=== PATIENT | female | born 1970 | race Caucasian/White ===

== ENCOUNTER → 2019-09-20 | Outpatient (CLI) | payer OTHER ==
--- NOTE | 2019-09-20 16:34 | RAD ---
EXAM: Dual energy x-ray absorptiometry (DEXA). HISTORY: Small bone stature. Osteoporosis screening. COMPARISON: None. TECHNIQUE: Dual energy x-ray absorptiometry of the lumbar spine and right hip was performed. Calculation of bone mineral density based on standard deviations above or below the expected young adult normal value (T-score) was completed. FINDINGS: The average bone mineral density in the 1st through 4th lumbar vertebrae is 1.486 g/cmxcm, corresponding with a T-score of 2.6. The average total bone mineral density in the right hip is 0.688 g/cmxcm, corresponding with a T-score of -2.2. IMPRESSION: 1. Osteopenia measured at the right hip. 2. Normal bone mineral density measured at the lumbar spine. Note: Definitions established by the World Health Organization: 1. Normal: T-score is -1.0 or above. 2. Osteopenia: T-score is between -1.0 and -2.5 . 3. Osteoporosis: T-score is -2.5 or below. Electronically signed by: Yanni Gee MD (09/20/2019 4:31 PM) [id number]
== END | disposition home or self-care (01) ==
LOC: DXRAD 13:24
PROVIDERS: ATTEND Family Medicine
DX: M85.88 Other specified disorders of bone density and structure, other site (principal)
CPT/HCPCS: 77080

== ENCOUNTER 2020-10-14 15:11 | Emergency (ER) | payer OTHER ==
[~2020-10-14] VITALS: Ht 165.1 cm; Wt 112.0 kg
--- NOTE | 2020-10-14 16:34 | RAD ---
Exam performed: X-ray right, right femur right ankle and right foot. DATE OF SERVICE: 10/14/2020. COMPARISON: None available FINDINGS: AP, lateral, sunrise and oblique views of the right knee are obtained. Normal alignment of the medial and lateral tibiofemoral joint is preserved. There is mild narrowing of the patellofemoral joint. Th ere is no acute fracture or dislocation. Mild soft tissue swelling is noted. AP and lateral view of the right femur demonstrates normal alignment of the right hip joint. There is narrowing of the patellofemoral joint. There is no acute fracture or dislocation. No soft tissue swe lling or foreign body seen. AP, lateral and oblique views of the right ankle demonstrate a comminuted fractured distal tibia with a horizontal fracture of the distal fibula. There is diffuse soft tissue swelling. No foreign body. AP, lateral and oblique views of the right foot demonstrate normal alignment. No acute fracture or di slocation is seen. No soft tissue swelling or foreign body seen. IMPRESSION: Comminuted fracture distal tibia and fibula with diffuse soft tissue swelling. No acute bony abnormality seen in the right knee. Degenerative arthrosis involving the patellofemoral joint is noted. No acute abnormality seen in the right femur. No acute abnormality seen in the right foot. Electronically signed by: Tammy Navarro MD (10/14/2020 4:31 PM) [facility]
--- NOTE | 2020-10-14 16:52 | PHYS DOC ---
Adult General Chief Complaint Chief Complaint: LOWER EXT PAIN HPI HPI Patient is a 49-year-old female presents to the emergency department complaining of right lower extremity swelling and discoloration. Patient states she was told to come here by an ER physician friend that seen her yesterday. 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 Patient states that she was transferring herself from her wheelchair into her car when the slide board slipped and she fell onto the ground. Patient did not realize she injured her right leg because she has not been able to feel her right leg for the past 22 years. Patient states that she had gone through her normal daily routine Thursday, and Thursday, and decided to come to the emergency department today for evaluation. Patient reports an allergy to Neosporin ointment. States she only takes Lamictal at home. Denies any other physical complaints or physical injury. (MARIA ISABEL MAURICIO APRN) Review of Systems Review of Systems 14 body systems of review of systems have been reviewed. See HPI for pertinent positives and negative responses, otherwise all other systems are negative, nonpertinent or noncontributory. (MARIA ISABEL MAURICIO APRN) Allergies Allergies Allergies Coded Allergies Type Severity Reaction Last Updated Verified bacitracin Allergy Unknown 10/14/20 Yes neomycin Allergy Unknown 10/14/20 Yes polymyxin B Allergy Unknown 10/14/20 Yes (MARIA ISABEL MAURICIO APRN) Physical Exam Physical Exam Constitutional: Well developed, well nourished, no acute distress, non-toxic appearance. 49-year-old female no apparent distress. HENT: Normocephalic, atraumatic, bilateral external ears normal, nose normal. Eyes: EOMI, conjunctiva normal, no discharge. Neck: Normal range of motion, no tenderness, supple, no stridor. No C-spine tenderness or crepitus appreciated. Cardiovascular:Heart rate regular rhythm, heart sounds S1-S2 to auscultation. Lungs & Thorax: Bilateral breath sounds clear to auscultation, no adventitious lung sounds appreciated. Abdomen: Bowel sounds normal, soft, flat. Skin: Warm, dry, no erythema, no rash. Back: No crepitus along bony prominences or vertebral column to palpation. Extremities: No abnormalities, crepitus, deformity noted to upper or lower extremities except for right knee distally to foot swollen, crepitus noted at ankle area, +3 pitting edema to foot, skin tight, unable to appreciate pulse, right foot pedal pulse and posterior tibial pulse.pulled without difficulty. Distal cap refill less than 2 seconds. Ecchymosis and bruising to ankle and foot area. No differential in temperature to touch versus left foot. Neurologic: Alert and oriented X 3, normal motor function, normal sensory function, no focal deficits noted. Psychologic: Affect normal, judgement normal, mood normal. (MARIA ISABEL MAURICIO APRN) EKG EKG [] (MARIA ISABEL MAURICIO APRN) Radiology/Procedures Radiology/Procedures PATIENT: VALORIE RODRIGUEZ ACCOUNT: [id number] : 1970 LOCATION: ER AGE: 49 SEX: F EXAM STATUS: REG ER ORD. PHYSICIAN: MARIA ISABEL MAURICIO APRN REASON: Fall 10/12/20, right upper leg pain, swelling Hx:Paraplegic PROCEDURE: RIGHT FEMUR XRAY Exam performed: X-ray right, right femur right ankle and right foot. DATE OF SERVICE: 10/14/2020. COMPARISON: None available FINDINGS: AP, lateral, sunrise and oblique views of the right knee are obtained. Normal alignment of the medial and lateral tibiofemoral joint is preserved. There is mild narrowing of the patellofemoral joint. There is no acute fracture or dislocation. Mild soft tissue swelling is noted. AP and lateral view of the right femur demonstrates normal alignment of the right hip joint. There is narrowing of the patellofemoral joint. There is no acute fracture or dislocation. No soft tissue swelling or foreign body seen. AP, lateral and oblique views of the right ankle demonstrate a comminuted fractured distal tibia with a horizontal fracture of the distal fibula. There is diffuse soft tissue swelling. No foreign body. AP, lateral and oblique views of the right foot demonstrate normal alignment. No acute fracture or dislocation is seen. No soft tissue swelling or foreign body seen. IMPRESSION: Comminuted fracture distal tibia and fibula with diffuse soft tissue swelling. No acute bony abnormality seen in the right knee. Degenerative arthrosis involving the patellofemoral joint is noted. No acute abnormality seen in the right femur. No acute abnormality seen in the right foot. Electronically signed by: Tammy Navarro MD (10/14/2020 4:31 PM) [facility] DICTATED AND SIGNED BY: TAMMY NAVARRO MD DATE: 10/14/20 [id number] CC: MARIA ISABEL MAURICIO APRN; NILTON DOOLEY DO; TRAVIS DE LA VEGA MD ~MTH0 0 (MARIA ISABEL MAURICIO APRN) Heart Score C/O Chest Pain: No Risk Factors: Risk Factors: DM, Current or recent (<one month) smoker, HTN, HLP, family history of CAD, obesity. Risk Scores: Risk Factors: DM, Current or recent (<one month) smoker, HTN, HLP, family history of CAD, obesity. (MARIA ISABEL MAURICIO APRN) Course & Med Decision Making Course & Med Decision Making Pertinent Labs and Imaging studies reviewed. (See chart for details) 49-year-old female, vital signs reviewed, presents emergency department concerning injury to right lower extremity after fall. Patient is a paraplegic from T6 injury 22 years ago. Physical examination concerning for bony injury of left lower extremity near ankle related to crepitus upon palpation. Patient has swelling to foot ankle lower leg, patient states she did fall onto her knee, marked swelling of the foot, pulses cruciated with bedside Doppler, distal cap refill less than 2 seconds, compartment syndrome unlikely. Will order x-ray imaging of humerus, knee, ankle, foot. Ice and elevation. X-ray imaging read tib-fib fracture distal bimalleolar, called and discussed findings with physician relations specialist Dr. PITT who recommended patient be placed in a posterior short leg with stirrup OCL splint with plenty of padding. Have patient follow-up at his office on Thursday. Ice and elevation at home daily until seen on Thursday. Discussed findings, splint placement, and Dr. PITT recommendations. Patient was amenable to this plan. Posterior OCL short leg splint with stirrup splint placed to right lower extremity by ED bonded strand operator staff. Upon examination, distal cap refill less than 2 seconds, appropriate placement of splint. Patient gave verbal understanding of splint care at home, follow-up with physician relations specialist this Thursday, ice and elevation, return to ER precautions and concerns, patient discharged home without incident. (MARIA ISABEL MAURICIO APRN) Course & Med Decision Making I oversaw care of patient while in ER. I reviewed radiographs and recommended TERRAZZO HELPER discuss case with Ortho. I agree to note and plan as stated. Electronically signed, Nilton Dooley DO (NILTON DOOLEY DO) Estelita Disclaimer Estelita Disclaimer This electronic medical record was generated, in whole or in part, using a voice recognition dictation system. (MARIA ISABEL MAURICIO APRN) Departure Departure: Impression: Primary Impression: Bimalleolar ankle fracture Disposition: 01 DC HOME SELF CARE/HOMELESS Condition: GOOD Referrals: TRAVIS DE LA VEGA MD (PCP) Patient Instructions: Bimalleolar Fracture, Ankle, Adult, Undisplaced Additional Instructions: You were seen for lower extremity swelling of your right leg, and x-ray revealed you have broken both your tibia and fibula at your ankle. I have spoken to orthopedic specially Dr. Pitt who recommended the splint we have placed on, he also recommended you be seen Thursday at his office. I have given you his office information, please call tomorrow morning for an appointment to be seen Thursday. I encourage you to keep your splinted leg elevated, use ice packs 30 minutes on 30 minutes off while awake. This will help reduce the amount of swelling you have. Please return to the emergency department for worsening symptoms or other concerns. Please have someone check the color and swell of your lower extremity every few hours, return to the emergency department immediately for cyanosis of your foot or lower extremity, cyanosis means a bluish discoloration, coldness. However your foot may seem cold from ice pack application. Dr. Jasbir Pitt Address: [address] [place] [id number] EMERGENCY DEPARTMENT GENERAL DISCHARGE INSTRUCTIONS Thank you for coming to [facility] (ED) today and trusting us with you care. We trust that you had a positivie experience in our Emergency Department. If you wish to speak to the department management, you may call the director at [phone]. YOUR FOLLOW UP INSTRUCTIONS ARE FOLLOWS: 1. Do you have a private Doctor? If you do not have a private doctor, please ask for a resource list of physicians or clinics that may be able to assist you with follow up care. 2. The Emergency Physician has interpreted your x-rays. The X-Ray specialist will also review them. If there is a change in the findings, you will be notified in 48 hours when at all possible. 3. A lab test or culture has been done, your results will be reviewed and you will be notified if you need a change in treatment. ADDITIONAL INSTRUCTIONS AND INFORMATION: 1. Your care today has been supervised by a physician who is specially trained in emergency care. Many problems require more than one evaluation for a complete diagnosis and treatment. We recommend that you schedule your follow up appointment as recommended to ensure complete treatment of you illness or injury. If you are unable to obtain follow up care and continue to have a problem, or if your condition worsens, we recommend that you return to the ED. 2. We are not able to safely determine your condition over the phone nor are we able to give sound medical advice over the phone. For these safety reasons, if you call for medical advice we will ask you to come to the ED for further evaluation. 3. If you have any questions regarding these discharge instructions please call the ED at [phone]. SAFETY INFORMATION: In the interest of safety, wellness, and injury prevention; we encourage you to wear your sealbelt, if you smoke; quite smoking, and we encourage family to use a pr otective helmet for bicycling and other sporting events that present an increased risk for head injury. IF YOUR SYMPTOMS WORSEN OR NEW SYMPTOMS DEVELOP, OR YOU HAVE CONCERNS ABOUT YOUR CONDITION; OR IF YOUR CONDITION WORSENS WHILE YOU ARE WAITING FOR YOUR FOLLOW UP APPOINTMENT; EITHER CONTACT YOUR PRIMARY CARE DOCTOR, THE PHYSICIAN WHOSE NAME AND NUMBER YOU WERE GIVEN, OR RETURN TO THE ED IMMEDIATELY. Problem Qualifiers Primary Impression: Bimalleolar ankle fracture Encounter type: initial encounter Fracture type: closed Laterality: right Qualified Codes: S82.841A - Displaced bimalleolar fracture of right lower leg, initial encounter for closed fracture MARIA ISABEL MAURICIO APRN Oct 14, 2020 16:52 NILTON DOOLEY DO Oct 14, 2020 21:23
[2020-10-14 17:55] VITALS: BP 121/81
== END 2020-10-14 18:00 | disposition home or self-care (01) ==
LOC: ER 15:11
DX: S82.841A Displaced bimalleolar fracture of right lower leg, initial encounter for closed fracture (principal); Z88.1 Allergy status to other antibiotic agents; Z88.8 Allergy status to other drugs, medicaments and biological substances; W18.39XA Other fall on same level, initial encounter; Y93.89 Activity, other specified; Y92.89 Other specified places as the place of occurrence of the external cause; Y99.8 Other external cause status
CPT/HCPCS: 29515; 73552; 73564; 73610; 73630; 99284